=== PATIENT | female | born 1970 | race Caucasian/White ===

== ENCOUNTER → 2023-07-16 | Outpatient (CLI) | payer OTHER | LOC: M PLAIMG 10:44 | PROVIDERS: ATTEND Internal Medicine Cardiovascular Disease | DX: I71.23 Aneurysm of the descending thoracic aorta, without rupture (principal) ==

== ENCOUNTER 2023-10-15 08:43 | Emergency (ER) | payer OTHER ==
[~2023-10-15] VITALS: Ht 170.2 cm; Wt 120.6 kg
[2023-10-15] MEDS ORDERED: MICA80TA PO (09:00)
[2023-10-15] MEDS ORDERED: MONT-5 PO (09:00)
[2023-10-15] MEDS ORDERED: SPIR-10 (09:00)
[2023-10-15] MEDS ORDERED: SYNT100T (09:00)
[2023-10-15] MEDS ORDERED: PANT20TA6 (09:00)
[2023-10-15] MEDS ORDERED: ROSU5TAB5 (09:00)
[2023-10-15] MEDS ORDERED: CARV25TA (09:00)
[2023-10-15] MEDS ORDERED: ASPI81TA26 PO (09:00)
[2023-10-15] MEDS: GABAPENTIN 300 MG CAP PO ONE (09:53)
[2023-10-15] MEDS: KETOROLAC 30 MG/ML 1ML VIAL IM ONE (09:53)
[2023-10-15] MEDS ORDERED: NAPR-837 PO (10:21)
[2023-10-15] MEDS ORDERED: GABA-282 PO (10:21)
[2023-10-15 10:44] VITALS: BP 161/58; TEMP 97.7; O2SAT 99
== END 2023-10-15 10:56 | disposition home or self-care (01) ==
LOC: M ED 08:43
DX: M19.012 Primary osteoarthritis, left shoulder (principal); G56.22 Lesion of ulnar nerve, left upper limb; I10 Essential (primary) hypertension; G47.33 Obstructive sleep apnea (adult) (pediatric); E03.9 Hypothyroidism, unspecified; K21.9 Gastro-esophageal reflux disease without esophagitis; Z86.79 Personal history of other diseases of the circulatory system; Z88.5 Allergy status to narcotic agent; Z88.6 Allergy status to analgesic agent; Z88.8 Allergy status to other drugs, medicaments and biological substances; Z79.82 Long term (current) use of aspirin; Z79.891 Long term (current) use of opiate analgesic; Z79.899 Other long term (current) drug therapy
CPT/HCPCS: 96372; 99284; J1885